=== PATIENT | male | born 1975 | race Hispanic/Latino ===

== ENCOUNTER 2022-04-29 13:07 | Emergency (ER) | payer BC ==
[~2022-04-29] VITALS: Ht 182.9 cm; Wt 136.1 kg
[2022-04-29] MEDS ORDERED: OXYMETAZOLINE HCL 0.05% NAS 1 SPRAY BTL ONE (13:15)
[2022-04-29] MEDS ORDERED: CLONIDINE HCL 0.1 MG TAB PO ONE (14:00)
== END 2022-04-29 14:42 | disposition home or self-care (01) ==
LOC: ER 13:35
DX: R04.0 Epistaxis (principal)
CPT/HCPCS: 99283